=== PATIENT | male | born 1950 | race Caucasian/White ===

== ENCOUNTER 2016-12-15 08:20 | Emergency (ER) | payer MEDICARE, MEDICAID ==
--- NOTE | 2016-12-15 08:28 | ED Physician Chart ---
Chief Complaint/HPI - Patient Information Date Seen:: 12/15/16 Time Seen:: 08:25 Chief Complaint:: Abdominal pain. History of Present Illness:: c/o acute onset R flank pain at about 8 pm yesterday, characterized as sharp, constant, with radiation to back and R groin. No fever. Taking po well without N /V/D. Last BM this morning, normal in color/consistency. No hematochezia or melena. No gross hematuria. Pt denies dysuria, urgency, or frequency with urination. Historian:: Patient Family MD/PCP:: Dr. Pompa LMP:: N/A Review:: Nurse's Note Reviewed Review of Systems - Review of Systems General/Constitutional: No fever, No chills, No weight loss, No weakness, No edema, No loss of appetite Skin: No skin lesions, No rash, No bruising Head: No headache, No light-headedness Eyes: No loss of vision, No pain, No diplopia ENT: No earache, No nasal drainage, No sore throat, No tinnitus Neck: No neck pain, No swelling, No thyromegaly, No stiffness, No mass noted Cardio Vascular: No chest pain, No palpitations, No edema Pulmonary: No SOB, No cough, No wheezing GI: No nausea, No vomiting, No diarrhea, Pain (R flank pain, see HPI.), No melena, No hematochezia, No constipation, No hematemesis G/U: No dysuria, No frequency, No hematuria Musculoskeletal: No bone or joint pain, No back pain, No muscle pain Endocrine: No polyuria, No polydipsia Psychiatric: No prior psych history Hematopoietic: No bruising, No lymphadenopathy Allergic/Immuno: No urticaria, No angioedema Neurological: No syncope, No focal symptoms, No weakness, No paresthesia, No headache, No dizziness, No confusion Past Medical History - Past Medical History Past Medical History: HTN, Dyslipidemia Family History: None Social History: Smoker (Rare use. Pt has been informed about health risks associated with tobacco use and has been advised to quit. Pt acknowledges understanding.), No Alcohol, No Drug Use, , Other (lives with his daughter.) Employment:: Retired. Surgical History: other (Surgical removal of a hepatic lesion about 35 y/a.) Psychiatricy History: None Medication: Reviewed Family Medical History - Family Member Mother History Unknown: Yes Physical Exam - Physical Examination General/Constitutional: Awake, Well-developed, well-nourished, Alert, GCS 15, Non-toxic appearing, Ambulatory Other Gen/Cons comments:: Breathes comfortably, speaks clearly, and is in distress due to severe abdominal pain. Head: Atraumatic Eyes: Lids, conjuctiva normal, PERRL, EOMI Other Eyes comments:: Anicteric sclera. Skin: Nl inspection, No rash, No skin lesions, No ecchymosis, Well hydrated, No lymphadenopathy ENMT: External ears, nose nl, Nasal exam nl, Oropharynx nl Neck: Nontender, Full ROM w/o pain, No JVD, No nuchal rigidity, No mass, No stridor Respiratory: Nl effort/Exclusion, Clear to Auscultation, No Wheeze/Rhonchi/Rales Cardio Vascular: RRR, No murmur, gallop, rubs, NL S1 S2 GI: No organomegaly, No hernia, Normal BS's, Nondistended, No mass/bruits, No McBurney tenderness Other GI comments:: Obese but soft. Tenderness at RUQ and R flank. No R. ? mild guarding. There is a Y-shaped well healed surgical scar in RUQ extending to midline near the umbilicus. Negative Kelly's, Arma's, and Kirk Simpson's signs. Extremities: No edema Neuro/Psych: Alert/oriented (oriented x 3), Judgement/insight normal, Mood normal, Normal gait, No focal deficits Misc: normal gait, Normal back, No paraspinal tenderness Labs/Radiology/EKG Results - Lab Results Results: Laboratory Tests 12/15/16 12/15/16 12/15/16 08:40 08:40 08:40 WBC 5.5 RBC 4.85 Hgb 14.3 Hct 42.7 MCV 88.0 MCH 29.4 MCHC Differential 33.5 RDW 12.4 Plt Count 174 MPV 8.7 Neutrophils % 63.6 Lymphocytes % 28.9 Monocytes % 5.1 Eosinophils % 1.3 Basophils % 1.1 PT 10.5 INR 1.01 PTT (Actin FS) 25.6 L Sodium 133 L Potassium 4.0 Chloride 102 Carbon Dioxide 26.1 Anion Gap 8.9 BUN 18 Creatinine 1.3 Est GFR ( Amer) > 60.0 Est GFR (Non-Af Amer) 58.7 BUN/Creatinine Ratio 13.8 Glucose 102 Calcium 9.5 Total Bilirubin 1.4 H AST 21 ALT 25 Alkaline Phosphatase 59 Total Protein 7.0 Albumin 4.2 Globulin 2.8 Albumin/Globulin Ratio 1.5 Amylase 195 H Lipase 22 Laboratory Last Values WBC 5.5 Th/cmm (4.8-10.8) 12/15/16 08:40 RBC 4.85 Mil/cmm (3.80-5.80) 12/15/16 08:40 Hgb 14.3 gm/dL (12.6-17.4) 12/15/16 08:40 Hct 42.7 % (39.0-49.0) 12/15/16 08:40 MCV 88.0 fl (80-99) 12/15/16 08:40 MCH 29.4 pg (27.0-31.0) 12/15/16 08:40 MCHC Differential 33.5 pg (28.0-36.0) 12/15/16 08:40 RDW 12.4 % (11.5-20.0) 12/15/16 08:40 Plt Count 174 Th/cmm (150-400) 12/15/16 08:40 MPV 8.7 fl 12/15/16 08:40 Neutrophils % 63.6 % (40.0-80.0) 12/15/16 08:40 Lymphocytes % 28.9 % (20.0-50.0) 12/15/16 08:40 Monocytes % 5.1 % (2.0-10.0) 12/15/16 08:40 Eosinophils % 1.3 % (0.0-5.0) 12/15/16 08:40 Basophils % 1.1 % (0.0-2.0) 12/15/16 08:40 PT 10.5 SECONDS (9.5-11.5) 12/15/16 08:40 INR 1.01 (0.5-1.4) 12/15/16 08:40 PTT (Actin FS) 25.6 SECONDS (26.0-38.0) L 12/15/16 08:40 Sodium 133 mEq/L (136-145) L 12/15/16 08:40 Potassium 4.0 mEq/L (3.5-5.1) 12/15/16 08:40 Chloride 102 mEq/L (98-107) 12/15/16 08:40 Carbon Dioxide 26.1 mEq/L (21.0-31.0) 12/15/16 08:40 Anion Gap 8.9 (7.0-16.0) 12/15/16 08:40 BUN 18 mg/dL (7-25) 12/15/16 08:40 Creatinine 1.3 mg/dL (0.7-1.3) 12/15/16 08:40 Est GFR ( Amer) > 60.0 ml/min (>90) 12/15/16 08:40 Est GFR (Non-Af Amer) 58.7 ml/min 12/15/16 08:40 BUN/Creatinine Ratio 13.8 12/15/16 08:40 Glucose 102 mg/dL (70-105) 12/15/16 08:40 Calcium 9.5 mg/dL (8.6-10.3) 12/15/16 08:40 Total Bilirubin 1.4 mg/dL (0.3-1.0) H 12/15/16 08:40 AST 21 U/L (13-39) 12/15/16 08:40 ALT 25 U/L (7-52) 12/15/16 08:40 Alkaline Phosphatase 59 U/L (34-104) 12/15/16 08:40 Creatine Kinase 113 U/L (30-223) 12/15/16 08:40 Total Protein 7.0 gm/dL (6.0-8.3) 12/15/16 08:40 Albumin 4.2 gm/dL (4.2-5.5) 12/15/16 08:40 Globulin 2.8 gm/dL 12/15/16 08:40 Albumin/Globulin Ratio 1.5 (1.0-1.8) 12/15/16 08:40 Amylase 195 U/L (29-103) H 12/15/16 08:40 Lipase 22 U/L (11-82) 12/15/16 08:40 Urine Source MIDSTREAM 12/15/16 10:45 Urine Color YELLOW 12/15/16 10:45 Urine Clarity HAZY (CLEAR) 12/15/16 10:45 Urine pH 7.0 12/15/16 10:45 Ur Specific [place] 1.015 (1.005-1.030) 12/15/16 10:45 Urine Protein TRACE mg/dL (NEGATIVE) 12/15/16 10:45 Urine Glucose (UA) NEGATIVE mg/dL (NEGATIVE) 12/15/16 10:45 Urine Ketones 15 mg/dL (NEGATIVE) H 12/15/16 10:45 Urine Blood NEGATIVE (NEGATIVE) 12/15/16 10:45 Urine Nitrate NEGATIVE (NEGATIVE) 12/15/16 10:45 Urine Bilirubin NEGATIVE (NEGATIVE) 12/15/16 10:45 Urine Urobilinogen 1.0 E.U./dL (0.2 - 1.0) 12/15/16 10:45 Ur Leukocyte Esterase NEGATIVE (NEGATIVE) 12/15/16 10:45 Urine RBC 0-2 /hpf (0-5) H 12/15/16 10:45 Urine WBC 0-2 /hpf (0-5) 12/15/16 10:45 Ur Epithelial Cells FEW /lpf (FEW) 12/15/16 10:45 Urine Bacteria NONE SEEN /hpf (NONE SEEN) 12/15/16 10:45 - Radiology Results Results: CT abdomen and pelvis without contrast: Colonic diverticulosis without evidence of diverticulitis. Mild generalized urinary bladder wall thickening which may be due to chronic infectious or inflammatory process or possibly due to chronic bladder outlet obstruction from a mildly prominent prostate gland. Postsurgical changes of right upper quadrant with dystrophic calcifications with the right lobe of the liver possibly due to previous surgery and mass resection. Please correlate patient's clinical history and old exams. Correlation should also made may be related liver function tests . Consider short-term follow-up. 2 mm nonobstuctive right renal stone. 1.8 cm partially calcified right perisigmoid lymph nodes, nonspecific, and possibly due to previous inflammatory process. Follow-up surveillance, however, is recommended to rule out less likely neoplastic process. Small fat-containing umbilical hernias. Atherosclerotic vascular disease. Official report per Dr. Jv Scott, radiologist. ED Septic Shock - . Is Septic Shock (SBP<90, OR Lactate>4 mmol\L) present?: No Reassessment (Disposition) - Reassessment Reassessment:: 0935. Pt overall feels better. Available lab results and CT findings have been reviewed with pt. Awaiting pending lab results. 1250 Pt has been repeatedly evaluated. Pt requested more pain control earlier because he has had diffuse bodily ache, especially in low back and posterior neck. Pt states that he did not sleep well last evening. 1308 Pt remains comfortable. No new complaint or findings. Pt does not need more pain control. CT and lab findings have been reviewed with pt. All questions answered. 1420 Pt remains stable and pain free. Pt requests to go home now and does not want further observation/management in hospital. Aftercare instructions have been given. His ex- Shilpa will drive pt home. Reassessment Condition:: Improved - Diagnosis Diagnosis:: R flank pain c/w urinary colic due to urolithiasis, stable and currently asymptomatic. - Aftercare/Follow up Instructions Aftercare/Follow-Up Instructions:: Refer to Discharge Instructions Notes:: Bedrest today. Clear liquid diet today. Abdominal pain instructions given. Drowsiness precautions given with the use of Dilaudid. F/U with PCP Dr. Pompa in one day for recheck with repeat lab studies: CMP, amylase. Copies of CT report and lab studies have been given to pt per nursing staff for pt to bring to Dr. Pompa for review and follow-up. Return to ER immediately if condition worsens or if any further questions/problems. Medication Prescribed:: None - Patient Disposition Discharge/Transfer:: Home Time:: 14:30 Condition at Disposition:: Stable, Improved ED Discharge Plan - Patient Disposition Instructions: Kidney Stones, Flank Pain, [id number] Accepting Physician: Dr. Aletha [Other] - 1-3 Days
[2016-12-15] MEDS ORDERED: HYDROmorphone 1 mg/mL 1mL Syr IVP STA ×2 (08:31→11:33)
[2016-12-15] MEDS ORDERED: HYDROmorphone 1 mg/mL 1mL Syr ONE ×2 (08:36→11:33)
[2016-12-15 08:52] LABS: % BASOPHILS 1.1 % (0.0-2.0); % EOSINOPHILS 1.3 % (0.0-5.0); % LYMPHOCYTES 28.9 % (20.0-50.0); % MONOCYTES 5.1 % (2.0-10.0); % NEUTROPHILS 63.6 % (40.0-80.0); HEMATOCRIT 42.7 % (39.0-49.0); HEMOGLOBIN 14.3 gm/dL (12.6-17.4); MEAN CORPUSCULAR HEMOGLOBIN 29.4 pg (27.0-31.0); MEAN CORPUSCULAR HGB CONC 33.5 pg (28.0-36.0); MEAN PLATELET VOLUME 8.7 fl; NEUTROPHILE ABSOLUTE 3.4 Th/cmm (1.8-8.0); PLATELET COUNT 174 Th/cmm (150-400); RED BLOOD COUNT 4.85 Mil/cmm (3.80-5.80); RED CELL DISTRIBUTION WIDTH 12.4 % (11.5-20.0); WHITE BLOOD COUNT 5.5 Th/cmm (4.8-10.8)
[2016-12-15 09:12] LABS: ALB/GLOB RATIO 1.5 (1.0-1.8); ALKALINE PHOSPHATASE 59 U/L (34-104); AMYLASE SERUM 195 U/L (29-103); ANION GAP 8.9 (7.0-16.0); BILIRUBIN,TOTAL 1.4 mg/dL (0.3-1.0); BUN - UREA NITROGEN 18 mg/dL (7-25); BUN/CREATININE RATIO 13.8; CALCIUM SERUM 9.5 mg/dL (8.6-10.3); CARBON DIOXIDE 26.1 mEq/L (21.0-31.0); CHLORIDE 102 mEq/L (98-107); CREATININE - SERUM 1.3 mg/dL (0.7-1.3); GLUCOSE 102 mg/dL (70-105); LIPASE 22 U/L (11-82); SGOT 21 U/L (13-39); SGPT/ALT 25 U/L (7-52); SODIUM SERUM 133 mEq/L (136-145)
[2016-12-15 09:13] LABS: INR 1.01 (0.5-1.4); PROTHROMBIN TIME (TEST) 10.5 SECONDS (9.5-11.5)
--- NOTE | 2016-12-15 09:20 | Diagnostic Imaging Report ---
CT abdomen and pelvis without intravenous contrast Indication: Abdominal pain Comparison: None, Technique: Axial images were obtained from the lung bases to the bilateral proximal femurs without IV contrast. Coronal reconstructions were made. total DLP: 720, CTDI13.1 FINDINGS: Hypoventilatory and atelectatic changes of the lung bases are noted. Assessment of the solid organs is limited due to lack of IV contrast. There are irregular calcification and possible partial resection involving the posterior right lobe of the liver. Postsurgical changes are seen along the right upper quadrant. No radiopaque gallstones identified. No focal splenic, pancreatic, or adrenal lesions. 2 mm nonobstructive right renal stone is noted. 1.5 cm high density superior pole left renal lesion is noted. Subcentimeter high density focus of the left kidney is noted to small to characterize. Minimal nonspecific perinephric inflammatory change are noted. Small fat-containing hernias are seen along the umbilical region. There is mild generalized urinary bladder wall thickening. The prostate gland measures 5.2 x 4.5 cm. A small fat-containing left inguinal hernia is noted. Colonic diverticulosis is noted. No evidence of diverticulitis. No evidence of acute appendicitis. No evidence of bowel obstruction. Partially calcified 1.8 cm right perisigmoid lymph node is noted. No free air or free fluid. Advanced degenerative changes of the spine are noted. IMPRESSION: Colonic diverticulosis without evidence of diverticulitis. Mild generalized urinary bladder wall thickening which may be due to chronic infectious or inflammatory process or possibly due to chronic bladder outlet obstruction from a mildly prominent prostate gland. Postsurgical changes of right upper quadrant with dystrophic calcifications with the right lobe of the liver possibly due to previous surgery and mass resection. Please correlate patient's clinical history and old exams. Correlation should also made may be related liver function tests. Consider short-term follow-up. 1.5 cm high density lesion of the superior pole of the left kidney possibly a hemorrhagic cyst. Recommend short-term follow-up ultrasound. 2 mm nonobstructive right renal stone. 1.8 cm partially calcified right perisigmoid lymph nodes, nonspecific, and possibly due to previous inflammatory process. Follow-up surveillance, however, is recommended to rule out less likely neoplastic process. Small fat-containing umbilical hernias. Atherosclerotic vascular disease.
[2016-12-15] MEDS ORDERED: Sodium Chloride 0.9% 1,000 ML IV ONE (09:38)
[2016-12-15 11:10] LABS: URINE COLOR YELLOW
[2016-12-15 11:11] LABS: URINE BILIRUBIN NEGATIVE (NEGATIVE); URINE BLOOD NEGATIVE (NEGATIVE); URINE GLUCOSE (UA) NEGATIVE (NEGATIVE); URINE KETONE 15 mg/dL (NEGATIVE)
[2016-12-15 11:12] LABS: URINE BACTERIA NONE SEEN /hpf (NONE SEEN); URINE EPITHELIAL CELLS FEW /lpf (FEW); URINE PROTEIN TRACE mg/dL (NEGATIVE); URINE RBC 0-2 /hpf (0-5); URINE WBC 0-2 /hpf (0-5)
== END 2016-12-15 14:45 | disposition home or self-care (01) ==
LOC: ER 08:20
DX: N20.9 Urinary calculus, unspecified (principal); I10 Essential (primary) hypertension; E78.5 Hyperlipidemia, unspecified; F17.200 Nicotine dependence, unspecified, uncomplicated
CPT/HCPCS: 99285 ×2; 96374 ×2; 96375 ×2; 96376; 93005; 76700; 74176; 84484; 36415 ×2; 85025 ×2; 85610 ×2; 85652; 81001 ×2; 82150 ×2; 82550 ×2; 83690 ×2; 80053 ×2; J1885; J2405 ×2; J1170; J7030

== ENCOUNTER 2016-12-15 20:42 | Emergency (ER) | payer MEDICARE, MEDICAID ==
--- NOTE | 2016-12-15 21:02 | ED Physician Chart ---
Chief Complaint/HPI - Patient Information Date Seen:: 12/15/16 Time Seen:: 20:50 Chief Complaint:: R sided abdominal pain History of Present Illness:: Pt came in by private auto because of recurrent R sided abdominal pain. Pt was seen earlier at this ER with extensive work up, including CT of abdomen and pelvis. No fever. No recurrent N/V/D. Last BM this morning which was normal in color/consistency. No hematochezia or melena. Abdominal pain can be improved with body movements. No other known aggravating or relieving factors. Pt denies dysuria, urgency or frequency with urination. Allergies:: Allergies Allergy/AdvReac Type Severity Reaction Status Date / Time No Known Allergies Allergy Verified 12/15/16 20:48 Vitals:: Vital Signs - 8 hr 12/15/16 20:42 Temp 98.4 F HR 98 RR 20 BP 141/80 O2 Sat % 97 Historian:: Patient Family MD/PCP:: Dr. Pompa LMP:: N/A Review:: Nurse's Note Reviewed Review of Systems - Review of Systems General/Constitutional: No fever, No chills, No weight loss, No weakness, No edema, No loss of appetite Skin: No skin lesions, No rash, No bruising Head: Headache (Occasional frontal headache.), No light-headedness Eyes: No loss of vision, No pain, No diplopia ENT: No earache, No nasal drainage, No sore throat Neck: Neck pain (Occasional posterior neck pain, especially when he did not sleep well.), No swelling, No thyromegaly, No stiffness, No mass noted Cardio Vascular: No chest pain, No palpitations, No edema Pulmonary: No SOB, No cough, No wheezing GI: No nausea, No vomiting, No diarrhea, Pain (see HPI.), No melena, No hematochezia, No constipation, No hematemesis G/U: No dysuria, No frequency, No hematuria Musculoskeletal: Back pain (occasional low back pain), Other (Occasional diffuse achiness in both thighs and arms when he did not sleep well.) Endocrine: No polyuria, No polydipsia Psychiatric: No prior psych history Hematopoietic: No bruising, No lymphadenopathy Allergic/Immuno: No urticaria, No angioedema Neurological: No syncope, No focal symptoms, No weakness, No paresthesia, Headache (see above.), No dizziness, No confusion Past Medical History - Past Medical History Past Medical History: HTN, Dyslipidemia Family History: None Social History: Smoker (rare. Pt has been informed about health risks associated with tobacco use and has been advised to quit. Pt acknowledges understanding.), No Alcohol, No Drug Use, , Other (Lives with his daughter) Employment:: Retired. Surgical History: other (Surgery to remove a hepatic lesion about 35 y/a.) Psychiatricy History: None Medication: Reviewed Family Medical History - Family Member Mother History Unknown: Yes Physical Exam - Physical Examination General/Constitutional: Awake, Well-developed, well-nourished, Alert, No distress, GCS 15, Non-toxic appearing, Ambulatory Other Gen/Cons comments:: Breathes comfortably, speaks clearly, but c/o severe R sided abdominal pain. Head: Atraumatic Eyes: Lids, conjuctiva normal, PERRL, EOMI Other Eyes comments:: No scleral icterus detected. Skin: Nl inspection, No rash, No skin lesions, No ecchymosis, Well hydrated, No lymphadenopathy ENMT: External ears, nose nl, Nasal exam nl, Oropharynx nl Neck: Nontender, Full ROM w/o pain, No JVD, No nuchal rigidity, No mass, No stridor Respiratory: Nl effort/Exclusion, Clear to Auscultation, No Wheeze/Rhonchi/Rales Cardio Vascular: RRR, No murmur, gallop, rubs GI: No organomegaly, No hernia, Normal BS's, Nondistended, No mass/bruits, No McBurney tenderness Other GI comments:: Abdomen is obese but soft. Tenderness primarily at RUQ. Negative Kelly's, Joseph's and Kirk-Simpson's signs : No CVA tenderness Extremities: No edema Neuro/Psych: Alert/oriented (oriented x 3), Judgement/insight normal, Mood normal, Normal gait, No focal deficits Misc: normal gait, Normal back, No paraspinal tenderness Labs/Radiology/EKG Results - Lab Results Results: Laboratory Tests 12/15/16 12/15/16 12/15/16 20:50 20:50 20:50 WBC 6.4 RBC 4.71 Hgb 13.9 Hct 41.6 MCV 88.3 MCH 29.5 MCHC Differential 33.4 RDW 12.5 Plt Count 168 MPV 8.5 Neutrophils % 67.7 Lymphocytes % 25.1 Monocytes % 6.6 Eosinophils % 0.4 Basophils % 0.2 ESR PT 10.6 INR 1.02 PTT (Actin FS) 24.7 L Sodium 132 L Potassium 3.9 Chloride 101 Carbon Dioxide 26.3 Anion Gap 8.6 BUN 21 Creatinine 1.3 Est GFR ( Amer) > 60.0 Est GFR (Non-Af Amer) 58.7 BUN/Creatinine Ratio 16.2 Glucose 99 Calcium 9.4 Total Bilirubin 1.8 H AST 18 ALT 23 Alkaline Phosphatase 54 Creatine Kinase Troponin I Total Protein 6.7 Albumin 4.1 L Globulin 2.6 Albumin/Globulin Ratio 1.6 Amylase 94 Lipase 14 Urine Source Urine Color Urine Clarity Urine pH Ur Specific [place] Urine Protein Urine Glucose (UA) Urine Ketones Urine Blood Urine Nitrate Urine Bilirubin Urine Urobilinogen Ur Leukocyte Esterase Urine RBC Urine WBC Ur Epithelial Cells Urine Bacteria 12/15/16 12/15/16 12/15/16 20:50 20:50 20:50 WBC RBC Hgb Hct MCV MCH MCHC Differential RDW Plt Count MPV Neutrophils % Lymphocytes % Monocytes % Eosinophils % Basophils % ESR 21 H PT INR PTT (Actin FS) Sodium Potassium Chloride Carbon Dioxide Anion Gap BUN Creatinine Est GFR ( Amer) Est GFR (Non-Af Amer) BUN/Creatinine Ratio Glucose Calcium Total Bilirubin AST ALT Alkaline Phosphatase Creatine Kinase 106 Troponin I < 0.01 L Total Protein Albumin Globulin Albumin/Globulin Ratio Amylase Lipase Urine Source Urine Color Urine Clarity Urine pH Ur Specific [place] Urine Protein Urine Glucose (UA) Urine Ketones Urine Blood Urine Nitrate Urine Bilirubin Urine Urobilinogen Ur Leukocyte Esterase Urine RBC Urine WBC Ur Epithelial Cells Urine Bacteria 12/15/16 22:55 WBC RBC Hgb Hct MCV MCH MCHC Differential RDW Plt Count MPV Neutrophils % Lymphocytes % Monocytes % Eosinophils % Basophils % ESR PT INR PTT (Actin FS) Sodium Potassium Chloride Carbon Dioxide Anion Gap BUN Creatinine Est GFR ( Amer) Est GFR (Non-Af Amer) BUN/Creatinine Ratio Glucose Calcium Total Bilirubin AST ALT Alkaline Phosphatase Creatine Kinase Troponin I Total Protein Albumin Globulin Albumin/Globulin Ratio Amylase Lipase Urine Source MIDSTREAM Urine Color YELLOW Urine Clarity CLEAR Urine pH 6.0 Ur Specific [place] 1.020 Urine Protein NEGATIVE Urine Glucose (UA) NEGATIVE Urine Ketones 15 H Urine Blood NEGATIVE Urine Nitrate NEGATIVE Urine Bilirubin NEGATIVE Urine Urobilinogen 1.0 Ur Leukocyte Esterase NEGATIVE Urine RBC 0-2 H Urine WBC 0-2 Ur Epithelial Cells OCCASIONAL Urine Bacteria OCCASIONAL [[ - Radiology Results Results: Abdominal sonogram (preliminary report): IVC=2.6 cm, GB 6.1 x 2.4 x 2.3 cm with wall size 0.3 cm. CBD not visualized. Pancreas not seen. Overall difficult pt due to body habitus and gas. - EKG Interpretations EKG Time:: 21:27 Rate & Rhythm: NSR with VR 82 Comments:: LAFB. No acute ischemic changes. ED Septic Shock - . Is Septic Shock (SBP<90, OR Lactate>4 mmol\L) present?: No - <6hrs of presentation: Vital Signs: Vital Signs - 8 hr 12/15/16 20:42 Temp 98.4 F HR 98 RR 20 BP 141/80 O2 Sat % 97 Reassessment (Disposition) - Reassessment Reassessment:: 2134 Pt has been reexamined. Pt feels much better and does not need more pain control. 2345 Pt remains pain free. No N/V/D. Abdominal sonographic preliminary report just became available. EKG, lab, and sonographic findings have been reviewed with pt. Management plan has been discussed. 0010 Pt remains comfortable without pain. Pt has been taking po well without N/V /D. No recurrent abdominal pain or discomfort. Pt requests to go home now and does not want further observation/management. Pt states that he will follow with PCP Dr. Pompa tomorrow for further evaluation/management. Aftercare instructions have been given. Copies of reports on studies done at ER have been provided for pt per nursing staff for pt to take to PCP Dr. Pompa for further evaluation and workup. His ex Shilpa will drive him home. Reassessment Condition:: Improved - Diagnosis Diagnosis:: Abdominal pain with recent findings of urolithiasis. Consider also gas pain vs fecal impaction related to surgical adhesions. Stable and currently asymptomatic. Mildly isolated elevated bilirubin of unknown significance. Consider Gilbert syndrome in light of recent poor oral intake. Stable. - Aftercare/Follow up Instructions Aftercare/Follow-Up Instructions:: Refer to Discharge Instructions Notes:: Bedrest today. Clear liquid diet for now. Increase oral fluid intake. Abdominal pain instructions given. Drowsiness instructions given with use of Dilaudid. F/U with PCP Dr. Pompa in one day for recheck. Return to ER immediately if condition worsens or if any further questions/problems. Medication Prescribed:: None - Patient Disposition Discharge/Transfer:: Home Time:: 00:15 Condition at Disposition:: Stable, Improved ED Discharge Plan - Patient Disposition Admit/Discharge/Transfer: PT DISCHARGED HOME Condition at Disposition: Improved Instructions: Abdominal Pain, [id number] Additional Instructions: TAKE MOTRIN/TYLENOL FOR PAIN NEEDED. KEEP WELL HYDRATED. FOLLOW UP WITH YOUR DOCTOR FOR RE-CHECK. RETURN TO ER IF CONDITION WORSEN.
[2016-12-15] MEDS ORDERED: HYDROmorphone 1 mg/mL 1mL Syr ONE (21:09)
[2016-12-15] MEDS: HYDROmorphone 1 mg/mL 1mL Syr IVP STA (21:13)
[2016-12-15 21:16] LABS: % BASOPHILS 0.2 % (0.0-2.0); % EOSINOPHILS 0.4 % (0.0-5.0); % LYMPHOCYTES 25.1 % (20.0-50.0); % MONOCYTES 6.6 % (2.0-10.0); % NEUTROPHILS 67.7 % (40.0-80.0); HEMATOCRIT 41.6 % (39.0-49.0); HEMOGLOBIN 13.9 gm/dL (12.6-17.4); MEAN CELL VOLUME 88.3 fl (80-99); MEAN CORPUSCULAR HEMOGLOBIN 29.5 pg (27.0-31.0); MEAN CORPUSCULAR HGB CONC 33.4 pg (28.0-36.0); MEAN PLATELET VOLUME 8.5 fl; NEUTROPHILE ABSOLUTE 4.4 Th/cmm (1.8-8.0); PLATELET COUNT 168 Th/cmm (150-400); RED BLOOD COUNT 4.71 Mil/cmm (3.80-5.80); RED CELL DISTRIBUTION WIDTH 12.5 % (11.5-20.0); WHITE BLOOD COUNT 6.4 Th/cmm (4.8-10.8)
[2016-12-15 21:24] LABS: INR 1.02 (0.5-1.4); PROTHROMBIN TIME (TEST) 10.6 SECONDS (9.5-11.5)
[2016-12-15 21:31] LABS: ALB/GLOB RATIO 1.6 (1.0-1.8); ALKALINE PHOSPHATASE 54 U/L (34-104); AMYLASE SERUM 94 U/L (29-103); ANION GAP 8.6 (7.0-16.0); BILIRUBIN,TOTAL 1.8 mg/dL (0.3-1.0); BUN - UREA NITROGEN 21 mg/dL (7-25); BUN/CREATININE RATIO 16.2; CALCIUM SERUM 9.4 mg/dL (8.6-10.3); CARBON DIOXIDE 26.3 mEq/L (21.0-31.0); CHLORIDE 101 mEq/L (98-107); CREATININE - SERUM 1.3 mg/dL (0.7-1.3); GLUCOSE 99 mg/dL (70-105); LIPASE 14 U/L (11-82); POTASSIUM SERUM 3.9 mEq/L (3.5-5.1); SGOT 18 U/L (13-39); SGPT/ALT 23 U/L (7-52); SODIUM SERUM 132 mEq/L (136-145)
[2016-12-15 23:18] LABS: URINE BILIRUBIN NEGATIVE (NEGATIVE); URINE COLOR YELLOW; URINE GLUCOSE (UA) NEGATIVE (NEGATIVE); URINE KETONE 15 mg/dL (NEGATIVE)
[2016-12-15 23:19] LABS: URINE BLOOD NEGATIVE (NEGATIVE); URINE PROTEIN NEGATIVE (NEGATIVE)
[2016-12-15 23:20] LABS: URINE BACTERIA OCCASIONAL /hpf (NONE SEEN); URINE EPITHELIAL CELLS OCCASIONAL /lpf (FEW); URINE RBC 0-2 /hpf (0-5); URINE WBC 0-2 /hpf (0-5)
--- NOTE | 2016-12-16 10:22 | Diagnostic Imaging Report ---
Ultrasound abdomen HISTORY: Right upper quadrant pain COMPARISON: CT abdomen and pelvis performed the same day Technique: Sonography of the abdomen was performed in multiple planes. FINDINGS: Exam is limited due to body habitus and bowel gas. The liver demonstrates normal echogenicity and measures 20 cm. The areas of calcification seen within the right lobe of liver seen on recent CT examination are not well-defined sonographically. No evidence of gallstones. The gallbladder wall is borderline prominent. The common bile duct was also not visualized due to bowel gas. No pericholecystic fluid. Assessment of the pancreas is limited due to bowel gas. The right kidney measures 11.8 cm. The left kidney measures 12.1 cm. No evidence of focal lesions or hydronephrosis. The spleen measures 10.6 cm. IMPRESSION: Limited exam due to body habitus and bowel gas. No evidence of gallstones. Borderline prominent gallbladder wall, nonspecific. The common bile duct was not visualized Hepatomegaly.
== END 2016-12-16 00:25 | disposition home or self-care (01) ==
LOC: ER 20:42
DX: N20.9 Urinary calculus, unspecified (principal); E80.7 Disorder of bilirubin metabolism, unspecified; I10 Essential (primary) hypertension; E78.5 Hyperlipidemia, unspecified; F17.200 Nicotine dependence, unspecified, uncomplicated
CPT/HCPCS: 99285; 96374; 96375; 93005; 76700; 84484; 36415; 85025; 85610; 85652; 81001; 82150; 82550; 83690; 80053; J2405; J1170